=== PATIENT | female | born 1960 | race Caucasian/White ===

== ENCOUNTER 2018-02-21 09:09 | Outpatient (CLI) | payer OTHER | END 2018-02-21 13:53 | disposition home or self-care (01) | LOC: SONOGRAMA 09:09 | DX: N60.11 Diffuse cystic mastopathy of right breast (principal); N60.12 Diffuse cystic mastopathy of left breast ==

== ENCOUNTER → 2018-03-18 | Day surgery (SDC) | payer OTHER ==
[~2018-03-18] MED LIST: SYNTHROID50 MCG PO
== END | disposition home or self-care (01) ==
LOC: CIR.AMB 05:45
DX: C50.211 Malignant neoplasm of upper-inner quadrant of right female breast (principal)

== ENCOUNTER → 2018-04-20 | Emergency (ER) | payer OTHER ==
[~2018-04-20] VITALS: Ht 160 cm; Wt 76.7 kg
== END | disposition home or self-care (01) ==
LOC: ER 06:50
DX: L76.34 Postprocedural seroma of skin and subcutaneous tissue following other procedure (principal); C50.911 Malignant neoplasm of unspecified site of right female breast; B34.9 Viral infection, unspecified; R60.0 Localized edema

== ENCOUNTER → 2019-03-15 | Emergency (ER) | payer OTHER ==
[~2019-03-15] VITALS: Ht 160 cm; Wt 75.7 kg
[~2019-03-15] MED LIST changes: +KETO10TA2 PO; +NORFLEX100MG PO
== END | disposition home or self-care (01) ==
LOC: ER 09:21
DX: R07.81 Pleurodynia (principal); M94.0 Chondrocostal junction syndrome [Tietze]

== ENCOUNTER 2020-06-11 07:25 | Outpatient (CLI) | payer OTHER | END 2020-06-11 07:56 | disposition home or self-care (01) | LOC: NUCLEAR 07:25 | PROVIDERS: ATTEND Internal Medicine Hematology & Oncology | DX: C50.411 Malignant neoplasm of upper-outer quadrant of right female breast (principal); C79.51 Secondary malignant neoplasm of bone | CPT/HCPCS: 78306; A9503 ==

== ENCOUNTER 2020-07-04 14:36 | Emergency (ER) | payer OTHER ==
[~2020-07-04] VITALS: Ht 160 cm; Wt 67.1 kg
[2020-07-04] MEDS ORDERED: DICLOFENAC SODI75 MG PO (16:27)
== END 2020-07-04 16:34 | disposition home or self-care (01) ==
LOC: ER 14:36
DX: M54.5 Low back pain (principal)

== ENCOUNTER 2020-07-09 09:09 | Outpatient (CLI) | payer OTHER ==
[~2020-07-09 09:09] MED LIST changes: +DICLOFENAC SODI75 MG PO
== END 2020-07-09 09:26 | disposition home or self-care (01) ==
LOC: NUCLEAR 09:09
PROVIDERS: ATTEND Internal Medicine Hematology & Oncology
DX: C50.211 Malignant neoplasm of upper-inner quadrant of right female breast (principal); Z17.0 Estrogen receptor positive status [ER+]; C79.51 Secondary malignant neoplasm of bone
CPT/HCPCS: 78815; A9552

== ENCOUNTER 2021-01-02 14:11 | Outpatient (CLI) | payer OTHER | END 2021-01-02 14:16 | disposition home or self-care (01) | LOC: LAB 14:11 | PROVIDERS: ATTEND Radiology Diagnostic Radiology | DX: N20.0 Calculus of kidney (principal) ==

== ENCOUNTER 2021-01-10 07:40 | Outpatient (CLI) | payer OTHER | END 2021-01-10 07:51 | disposition home or self-care (01) | LOC: TOM 07:40 | PROVIDERS: ATTEND Internal Medicine | DX: C79.51 Secondary malignant neoplasm of bone (principal); M53.85 Other specified dorsopathies, thoracolumbar region; C50.811 Malignant neoplasm of overlapping sites of right female breast ==